=== PATIENT | male | born 1950 | race Caucasian/White ===

== ENCOUNTER 2019-02-05 08:01 | Day surgery (SDC) | payer MEDICARE, MEDICAID, SELFPAY ==
[2019-02-05 08:40] VITALS: BP 122/66; PULSE 74; RESP 16; TEMP 37; O2SAT 98
[2019-02-05] MEDS: Lactated Ringers 1,000 ML 80 ML IV (09:22)
[2019-02-05] MEDS: Bupivacaine 0.5% Pres-Free 30 ML VIAL (11:28)
[2019-02-05] MEDS: ceFAZolin 1 GM/50 ML BAG IVPB (11:30)
--- NOTE | 2019-02-05 11:37 | SKI_PTH ---
PATIENT: JEANINE BOOKER LOC: [facility] U#:[id number] AGE/SX: 68/M ROOM: RE02/05/[address]: Sadi Flores : 1950 BED: DIS: 02/05/2019 SPEC #: [id number] RECD: 02/05/19 12:42 STATUS: JOSELINE REQ #: [id number] ANNIKA: 02/05/19 11:[address]: Sadi Flores DEPT: Surgical Specimen RECD BY: Brandie Adame ENTERED: 02/05/19 12:43 SP TYPE: LIZZIE MIXON DR: Jonn Tabor Tissues: 1 - SKIN BIOPSY(SHAVE/PUNCH) Procedures: IMMUNOPEROXIDASE STAIN SKIN LEVEL 4 Comments: [id number]
--- NOTE | 2019-02-05 11:46 | W.PM.DSUDISC ---
Discharge Plan Disposition Patient Disposition: HOME Condition: Good Discharge Details Reason For Visit: NEOPLASM (R) 5 TH TOE Attending Provider: Sadi Flores Primary Care Provider: Jonn Tabor Home Meds and New Rx's Prescriptions: No Action gabapentin 250 mg/5 mL Solution 1,000 mg feeding tube DAILY RF: 0 levothyroxine 75 mcg Tablet 75 mcg feeding tube DAILY RF: 0 mirtazapine 30 mg Tablet 30 mg feeding tube DAILY RF: 0 albuterol sulfate [ProAir HFA] 90 mcg/actuation Hfa Aerosol Inhaler 2 puff INHALATION BID PRN PRNRF: 0 ranitidine HCl 15 mg/mL Syrup 10 mg feeding tube RF: 0 Advair HFA 115-21 mcg/actuation Hfa Aerosol Inhaler 2 puff INHALATION BID RF: 0 Incruse Ellipta 62.5 mcg/actuation Blister With Device 1 INHALATION DAILY RF: 0 testosterone cypionate 200 mg/mL Kit 0.5 IM RF: 0 Discharge Instructions Activity:: Activity as Tolerated Remove Dressings/Wound Care:: Do Not Remove Shower/Bathe:: Cover Diet:: Normal Diet Discharge Orders Discharge Orders: Discharge Order (Routine); Ordered 02/05/19 Ordered By: Sadi Flores DS: Diagnosis Discharge Diagnosis (1) 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
--- NOTE | 2019-02-05 12:08 | ROE_ITS ---
DATE OF PROCEDURE: February 05, 2019 PREOPERATIVE DIAGNOSIS: Atypical lentiginous melanocytic lesion right fifth toe. POSTOPERATIVE DIAGNOSIS: Same. PROCEDURE: Excision lesion right fifth toe. SURGEON: Sadi Flores D.P.M. OPERATIVE PROCEDURE: Richi was brought to the operative suite, placed in the supine position. The rig ht fifth toe was anesthetized with 5 cc's of a 50:50 mixture, 1% Lidocaine with epinephrine, 0.5% Mar drake plain. The right foot was then prepped and draped in the usual sterile podiatric fashion. Attention was directed to the right fifth toe. Lesion is appreciated at the distal aspect. With a s kin scribe incisions were placed so as to encompass the entire lesion, approximately 2 to 3 mm of brittany arance around the lesion. The incisions were placed as two converging, semi-elliptical, encompassing the distal tip of the toe. With a #15 scalpel the incisions were made in controlled depth. The ski n wedge was excised, in total, full-thickness. A suture was placed through the medial portion of the lesion for orientation. This was then sent to Pathology in formalin. The wound was irrigated and c losed primarily with #4-0 nylon simple interrupted suture. Xeroform, gauze fluff dressing applied. Richi left the OR with vital signs stable, vascular status intact. He will be followed by me next week .
== END 2019-02-05 12:38 | disposition home or self-care (01) ==
PROVIDERS: PCP Family Medicine; Visit Provider Podiatrist
PROC: (CPT 11422; principal; 2019-02-05 11:00)
DX: L81.4 Other melanin hyperpigmentation (principal); D22.71 Melanocytic nevi of right lower limb, including hip
CPT/HCPCS: 11422; 88305; 88361; J0690

== ENCOUNTER → 2020-02-22 09:53 | Outpatient (BNVA) | payer MEDICARE, MEDICAID, SELFPAY | PROVIDERS: PCP Family Medicine; Referring Provider Family Medicine; Visit Provider Nurse Practitioner Adult Health | DX: G56.02 Carpal tunnel syndrome, left upper limb (principal); G56.22 Lesion of ulnar nerve, left upper limb | CPT/HCPCS: 95909; 99215 ==